=== PATIENT | female | born 1995 | race Caucasian/White ===

== ENCOUNTER 2020-11-23 10:02 | Outpatient (CLI) | payer BC, OTHER ==
[2020-11-23 22:12] LABS: SARS-CoV-2 PCR by NAA Not Detected (NotDetected)
== END 2020-11-23 10:03 | disposition home or self-care (01) ==
LOC: CSHLAB 10:02
PROVIDERS: ATTEND Obstetrics & Gynecology
DX: Z20.822 Contact with and (suspected) exposure to COVID-19 (principal)
CPT/HCPCS: 87635; U0003; U0005

== ENCOUNTER 2020-11-27 06:06 | Inpatient (IN) | payer BC, OTHER ==
[2020-11-27] MEDS ORDERED: Ibuprofen 800 MG TAB PO PRN (06:15)
[2020-11-27] MEDS ORDERED: HYDROcodone/Acetaminophen 5/325 mg Tablet PO PRN ×4 (06:15→23:24)
[2020-11-27] MEDS ORDERED: Butorphanol Tartrate 1 MG/ML VIAL SLOW IVP PRN (06:15)
[2020-11-27] MEDS ORDERED: Ondansetron PF 4 MG/2 ML Vial IVP PRN ×3 (06:15→23:24)
[2020-11-27] MEDS ORDERED: Acetaminophen 500 MG TAB PO PRN (06:15)
[2020-11-27] MEDS ORDERED: Promethazine HCl 25 MG/ML VIAL IM PRN ×2 (06:15→14:23)
[2020-11-27] MEDS ORDERED: Docusate 100 MG CAP PO PRN (06:15)
[2020-11-27] MEDS ORDERED: hydrALAZINE 20 MG/ML VIAL SLOW IVP PRN ×2 (06:15→23:24)
[2020-11-27] MEDS ORDERED: Lidocaine 1% (PF) 30 ML VIAL SC PRN (06:15)
[2020-11-27] MEDS ORDERED: Misoprostol 200 MCG TAB PR PRN (06:15)
[2020-11-27] MEDS ORDERED: Diphenoxylate HCl/Atropine Tablet PO PRN ×2 (06:15)
[2020-11-27] MEDS ORDERED: NS w/ Oxytocin 30 units 500 ML IVPB PRN (06:31)
[2020-11-27] MEDS ORDERED: NS w/ Oxytocin 30 units 500 ML IVPB SCH (06:45)
[2020-11-27] MEDS: Lactated Ringer's 1,000 ML IV SCH ×3 (07:29→21:16)
[2020-11-27] MEDS: NS w/ Oxytocin 30 units 500 ML IVPB SCH ×2 (07:48→23:48)
[2020-11-27 08:16] LABS: Hemoglobin 11.4 g/dL (12.0-15.5); Mean Corpuscular HGB CONC 34.7 g/dL (32.0-36.0); Mean Corpuscular Hemoglobin 31.1 pg (27.0-33.0); Mean Corpuscular Volume 89.9 fl (81.6-98.3); Mean Platelet Volume 10.3 fl (7.4-10.4); Platelet Count 164 10x3/uL (150-450); RBC Distribution Width 12.2 % (11.5-14.5); Red Blood Cell (RBC) Count 3.66 10x6/uL (3.90-5.03); White Blood Cell (WBC) Count 5.8 10x3/uL (3.5-10.5)
[2020-11-27 09:20] LABS: Hep B Surf Ag Non-Reactive S/CO (NonReactive); Syphilis Antibody Nonreactive (Nonreactive); Syphilis Antibody Index 0.02 S/CO (<1.00 Non-Reactive)
[2020-11-27 09:36] LABS: HBSAg Index 0.14 S/CO (0-0.99)
[2020-11-27] MEDS ORDERED: Fentanyl 4 mcg/Bup 0.1% Cadd 100 ML ONE (11:56)
[2020-11-27] MEDS ORDERED: Acetaminophen 325 MG TAB PO PRN (14:23)
[2020-11-27] MEDS ORDERED: diphenhydrAMINE 50 MG/ML VIAL IVP PRN (14:23)
[2020-11-27] MEDS ORDERED: Eucerin (Mineral Oil/Petrolatum,White) 30 gm Jar TOP PRN (14:23)
[2020-11-27] MEDS ORDERED: Lactated Ringer's 500 ML IV PRN (14:23)
[2020-11-27] MEDS ORDERED: Naloxone HCl 0.4 mg/ml Vial IVP PRN ×2 (14:23)
[2020-11-27] MEDS ORDERED: ePHEDrine 50 MG/ML VIAL SLOW IVP PRN (14:23)
[2020-11-27 14:30] VITALS: BMI 35.5
[2020-11-27] MEDS ORDERED: Communication Order-Pharmacy FS SCH (14:30)
[2020-11-27] MEDS ORDERED: Fentanyl 4 mcg/Bupivacaine 0.1% Cassette 100 ML EPIDURAL SCH (14:30)
[2020-11-27] MEDS ORDERED: Methylergonovine 0.2 MG/ML VIAL ONE (22:22)
[2020-11-27] MEDS ORDERED: Benzocaine-Menthol 82.5 ML CAN TOP PRN (23:24)
[2020-11-27] MEDS ORDERED: Bisacodyl 10 MG SUPP PR PRN (23:24)
[2020-11-27] MEDS ORDERED: diphenhydrAMINE 25 MG CAP PO PRN (23:24)
[2020-11-27] MEDS ORDERED: Lanolin Ointment 7 GM TUBE TOP PRN (23:24)
[2020-11-27] MEDS ORDERED: Preparation H Ointment 28 GM TUBE PR PRN (23:24)
[2020-11-27] MEDS ORDERED: Adacel (T-DAP) 0.5 ML SYRINGE IM ONE (23:24)
[2020-11-27] MEDS ORDERED: Misoprostol 200 MCG TAB VAG PRN (23:24)
[2020-11-27] MEDS ORDERED: Zolpidem Tartrate 5 MG TAB PO PRN (23:24)
[2020-11-27] MEDS ORDERED: Milk Of Magnesia 30 ML UDCUP PO PRN (23:24)
[2020-11-27] MEDS ORDERED: Witch Hazel-Glycerin 1 EACH JAR TOP PRN (23:26)
[2020-11-27] MEDS ORDERED: NS w/ Oxytocin 30 units 500 ML IV SCH (23:45)
[2020-11-28] MEDS: Ibuprofen 800 MG TAB PO SCH ×3 (05:17→21:53)
[2020-11-28 06:25] LABS: Mean Corpuscular HGB CONC 33.2 g/dL (32.0-36.0); Mean Corpuscular Hemoglobin 30.1 pg (27.0-33.0); Mean Corpuscular Volume 90.4 fl (81.6-98.3); Mean Platelet Volume 10.4 fl (7.4-10.4); Platelet Count 173 10x3/uL (150-450); RBC Distribution Width 12.2 % (11.5-14.5); Red Blood Cell (RBC) Count 3.66 10x6/uL (3.90-5.03); White Blood Cell (WBC) Count 11.6 10x3/uL (3.5-10.5)
[2020-11-28] MEDS: Docusate Calcium (SURFAK) 240 MG CAP PO SCH ×2 (10:05→21:53)
[2020-11-28] MEDS: Prenatal Vitamin 1 TAB PO SCH (10:05)
[2020-11-28] MEDS: Ferrous Sulfate 325 MG TAB PO SCH (18:28)
[2020-11-29] MEDS: Ibuprofen 800 MG TAB PO SCH (06:00)
[2020-11-29] MEDS: Ferrous Sulfate 325 MG TAB PO SCH (07:50)
[2020-11-29 08:18] VITALS: BP 117/65; TEMP 98.2
[2020-11-29] MEDS: Docusate Calcium (SURFAK) 240 MG CAP PO SCH (09:21)
[2020-11-29] MEDS: Prenatal Vitamin 1 TAB PO SCH (09:22)
== END 2020-11-29 12:50 | disposition home or self-care (01) | DRG 807 ==
LOC: CSHLD 06:06 → CSHPP 11-28 02:49 → EDSTATUS 12-02 17:28
PROVIDERS: ADMIT Obstetrics & Gynecology; ATTEND Obstetrics & Gynecology
PROC: 10E0XZZ Delivery of Products of Conception, External Approach (ICD-10-PCS; principal; 2020-11-27)
PROC: 3E033VJ Introduction of Other Hormone into Peripheral Vein, Percutaneous Approach (ICD-10-PCS; 2020-11-27)
PROC: 10907ZC Drainage of Amniotic Fluid, Therapeutic from Products of Conception, Via Natural or Artificial Opening (ICD-10-PCS; 2020-11-27)
DX: O99.344 Other mental disorders complicating childbirth (principal); Z37.0 Single live birth; Z3A.39 39 weeks gestation of pregnancy; F41.9 Anxiety disorder, unspecified; F32.9 Major depressive disorder, single episode, unspecified; Z20.822 Contact with and (suspected) exposure to COVID-19; Z79.899 Other long term (current) drug therapy; Z90.49 Acquired absence of other specified parts of digestive tract; Z79.82 Long term (current) use of aspirin
CPT/HCPCS: 36415; 51702; 85027; 86780; 86850; 86900; 86901; 87340; J2590